=== PATIENT | female | born 1955 | race African-American/Black ===

== ENCOUNTER 2017-02-12 07:51 | Outpatient (CLI) | payer MEDICARE, MEDICAID ==
--- NOTE | 2017-02-12 08:48 | ULT ---
ULTRASOUND RETROPERITONEUM COMPLETE: (RENAL) DATE: 02-12-17 HISTORY: 61-year-old female with chronic kidney disease. FINDINGS: Right kidney is 6 x 3 x 3 cm, and has somewhat thin, and moderately echogenic parenchyma. No hydronep hrosis. Left kidney is approximately 12 x 4 x 5.5 cm, and has normal parenchymal echogenicity. Renal parenchy ma is slightly thin. There is a column of Jose. The elongation and column of Jose are suggestive of a duplicated or partially duplicated collecting system. There is no hydronephrosis. No moderate sized or large cystic or solid renal mass is identified. The urinary bladder is empty. IMPRESSION: 1. Small right kidney. 2. 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 3. No hydronephrosis. RIVER Yip POS: [facility]
== END 2017-02-12 07:52 | disposition home or self-care (01) ==
LOC: ULT 07:51
PROVIDERS: ATTEND Internal Medicine Nephrology
DX: N18.9 Chronic kidney disease, unspecified (principal); N28.1 Cyst of kidney, acquired
CPT/HCPCS: 76770

== ENCOUNTER 2017-10-15 16:59 | Emergency (ER) | payer MEDICARE, MEDICAID | END 2017-10-15 18:03 | disposition home or self-care (01) | LOC: ERS 16:59 | DX: M54.5 Low back pain (principal); E10.9 Type 1 diabetes mellitus without complications; E78.5 Hyperlipidemia, unspecified; I10 Essential (primary) hypertension; I25.10 Atherosclerotic heart disease of native coronary artery without angina pectoris; F41.9 Anxiety disorder, unspecified; Z79.82 Long term (current) use of aspirin; Z79.899 Other long term (current) drug therapy; Z79.84 Long term (current) use of oral hypoglycemic drugs; V43.62XA Car passenger injured in collision with other type car in traffic accident, initial encounter | CPT/HCPCS: 99283 ==

== ENCOUNTER 2018-01-06 11:02 | Observation (INO) | payer MEDICARE, MEDICAID ==
[2018-01-06 11:22] LABS: #Basophils 0.1 thou/uL (0.0-0.2); #Eosinphils 0.1 thou/uL (0.0-0.7); #Lymphocytes 2.5 thou/uL (1.20-3.40); #Monocytes 0.6 thou/uL (0.11-0.59); #Neutrophils 4.3 thou/uL (1.40-6.50); %Basophils 1.1 % (0.0-1.0); %Eosinophils 1.9 % (0.0-10.0); %Lymphocytes 32.4 % (21.0-51.0); %Monocytes 7.8 % (0.0-10.0); %Neutrophils 56.8 % (42.0-75.0); Hemoglobin 12.2 g/dL (12.0-16.0); Mean Corpuscular HGB CONC 32.1 g/dL (32.0-36.0); Mean Corpuscular Hemoglobin 27.7 pg (27.0-31.0); Mean Corpuscular Volume 86.3 fL (78.0-98.0); Mean Platelet Volume 8.6 fL (7.4-10.4); Platelet Count 312 thou/uL (130-400); RBC Distribution Width 13.3 % (11.5-14.5); Red Blood Cell (RBC) Count 4.42 mill/uL (4.20-5.40); White Blood Cell (WBC) Count 7.6 thou/uL (4.8-10.8)
[2018-01-06 11:43] LABS: ALT (SGPT) 11 U/L (8-55); AST (SGOT) 17 U/L (5-34); Albumin 4.2 g/dL (3.5-5.0); Alkaline Phosphatase 70 U/L (40-150); Anion Gap 12 mmol/L (10-20); BUN (Urea Nitrogen) 22 mg/dL (9.8-20.1); Bilirubin, Total 0.4 mg/dL (0.2-1.2); CK (CPK) 88 U/L (29-168); Calc. Creatinine Clearance 0 mL/min (70-130); Calcium 9.7 mg/dL (7.8-10.44); Carbon Dioxide 29 mmol/L (22-29); Chloride 100 mmol/L (98-107); Estimated GFR-MDRD 42; Globulin 4.4 g/dL (2.4-3.5); Glucose 68 mg/dL (70-105); Lipase 70 U/L (8-78); Potassium 3.5 mmol/L (3.5-5.1); Protein, Total 8.6 g/dL (6.0-8.3); Sodium 137 mmol/L (136-145)
[2018-01-06 11:47] LABS: CKMB 0.7 ng/mL (0-6.6); Troponin I Less than 0.010 ng/mL (< 0.028)
--- NOTE | 2018-01-06 12:04 | RAD ---
UPRIHGT PORTABLE CHEST ONE VIEW: History: 62-year-old female with history of shortness of breath. Comparison: 05-06-15 FINDINGS: Post underlying sternotomy. Left ICD. Old granuloma calcification in the right lower lobe. Heart size is normal. The lungs are clear. IMPRESSION: No acute intrathoracic disease. Atherosclerosis of the aorta. Post underlying sternotomy. Left ICD. O ld granulomatous disease. POS: C
[2018-01-06] MEDS ORDERED: Acetaminophen 325 MG TAB PO PRN (13:55)
[2018-01-06] MEDS ORDERED: Ondansetron PF 4 MG/2 ML Vial IVP PRN (13:55)
[2018-01-06] MEDS ORDERED: Ondansetron ODT 4 MG TAB SL PRN (13:55)
[2018-01-06 14:06] VITALS: BMI 40.4
[2018-01-06 14:50] LABS: Troponin I Less than 0.010 ng/mL (< 0.028)
[2018-01-06] MEDS ORDERED: Dextrose 50% Abboject 50 ML SYRINGE SLOW IVP PRN (17:36)
[2018-01-06] MEDS ORDERED: Dextrose 5% in Water 1,000 ML IV PRN (17:36)
[2018-01-06] MEDS ORDERED: Insulin Regular 300 UNITS/3 ML VIAL SC PRN (17:36)
[2018-01-06 18:20] LABS: Troponin I Less than 0.010 ng/mL (< 0.028)
[2018-01-06] MEDS ORDERED: Nitroglycerin 0.4 MG TAB (25 Tab Bottle) SL PRN (18:32)
--- NOTE | 2018-01-06 18:39 | HP ---
DATE OF ADMISSION: 01/06/2018 CHIEF COMPLAINT: Chest pain. HISTORY OF PRESENT ILLNESS: Ms. Prajapati is a pleasant 62-year-old female with a past medical history of type 1 diabetes, hyperlipidemia, hypertension, CAD with stent placement, CABG about 5 years ago a long with AICD placement. She had presented to the ER with some chest pain and chest pain and shortn ess of breath that started last night, she states that the chest pain is a pressure-like sensation. She should also report some nausea without vomiting during this time. She states she was supposed to follow up with Dr. Hancock tomorrow for a checkup on her AICD. She states that the pain continued on t hrough today and that is what brought her in. She states the pain radiates throughout her chest, but denies any radiation down her arm. She denies any trauma or abdominal pain, headache or dizziness. In the ER, an EKG was obtained and showed junctional rhythm with a rate of 81 with PVCs. Chest x-ra y was unremarkable. She states she took her home nitro and aspirin; however, these failed to help wi th symptoms. PAST MEDICAL HISTORY: Chronic systolic heart failure, chronic ischemic cardiomyopathy, CAD with kenya nary artery bypass grafting, hypertension, dyslipidemia, paroxysmal ventricular tachycardia, diabetes type 1. PAST PSYCHIATRIC HISTORY: Positive for anxiety and depression. PAST SURGICAL HISTORY: CABG, AICD placement, tubal ligation. SOCIAL HISTORY: She lives at home with family. She denies tobacco, alcohol, or drug use. FAMILY HISTORY: No strong family history of CAD, CVA or cancer. ALLERGIES: No known drug allergies. CURRENT HOME MEDICATIONS: Aspirin 325 mg p.o. daily, isosorbide mononitrate 30 mg p.o. b.i.d., metfo rmin 500 mg p.o. b.i.d., pravastatin 40 mg p.o. daily, citalopram 20 mg p.o. daily, hydralazine HCL 5 0 mg p.o. t.i.d., spironolactone 25 mg p.o., VESIcare 5 mg p.o. daily, nitroglycerin 0.4 mg sublingua l every 5 minutes p.r.n. chest pain, carvedilol 25 mg p.o. b.i.d., multivitamin 2 tabs p.o. daily, to rsemide 60 mg p.o. daily. REVIEW OF SYSTEMS: Constitutional: Denies weight loss or weight gain. She reports able to do daily activities. Skin: No rashes or itching. Eyes: No double vision or eye pain. ENT: Denies nosebl eeds, neck stiffness, pain, or tenderness. Cardiovascular: Does report chest pain; however, no palp itations. Respiratory: Does report mild shortness of breath; however, denies wheezing, cough. Ruiz rointestinal: Denies poor appetite, abdominal pain, heartburn, nausea, vomiting, constipation and di arrhea. Genitourinary: Denies any frequency, urgency or dysuria. Musculoskeletal: Denies any pain or swelling. Neurologic: Denies any weakness or numbness or tingling. Psychiatric: Does report h istory of depression and anxiety. PHYSICAL EXAMINATION: VITAL SIGNS: Blood pressure 138/67, pulse 59, respirations 21, temperature 98.0, O2 saturations 99% on room air. GENERAL: The patient is alert and oriented x3. Mild acute distress noted due to chest pain. HEENT: Head is normocephalic, atraumatic. Eyes, pupils are round, reactive to light. Extraocular m uscles intact. ENT: Oropharynx is within normal limits. Moist mucous membranes. No oral lesions, no pharyngeal erythema or exudates. NECK: No JVD, no thyromegaly, no carotid bruit. LUNGS: Clear to auscultation bilaterally. No wheezes, rhonchi or rales. CARDIAC: Positive S1, S2. No murmur, gallop or rub. ABDOMEN: Soft, nontender, nondistended. Bowel sounds present. No masses noted. No suprapubic tend erness. BACK: Unremarkable. No CVA tenderness. EXTREMITIES: Full range of motion noted. No edema. Peripheral pulses 2+ bilaterally. SKIN: No rashes or lesions. NEUROLOGICAL: Nonfocal deficit noted. Cranial nerves II-XII intact. Moves all extremities. PSYCHIATRIC: Normal mood and affect. SIGNIFICANT LABORATORY DATA: WBC 7.6, RBC 4.42, hemoglobin 12.2. Sodium 137, potassium 3.5, creatin ine 1.53, GFR 42, glucose 60. Troponin less than 0.010 x2. BNP 85.2. AST 17, ALT 11, lipase 70. DIAGNOSTIC IMAGING: Chest x-ray showed no acute intrathoracic disease with a left implantable cardio verter defibrillator in place. ASSESSMENT AND PLAN: 1. Chest pain, we will rule out cardiac causes with stress test and echocardiogram. We will trend t roponins. We will consult Dr. Hancock for further evaluation of her AICD. We will also obtain an AICD interrogation. Monitor EKG. Check CBC and BMP in the morning and replace electrolytes as needed. 2. Chronic systolic heart failure, continue home medications for medical management. 3. Dyslipidemia. Continue home statin therapy. 4. Coronary artery disease with history of coronary artery bypass graft, as above. Continue patient 's home medications for medical management. 5. Chronic kidney disease stage 4, monitor BMP closely, creatinine on admission was 1.53, which seem s to be her baseline. 6. Diabetes mellitus, we will start patient on sliding scale. Monitor blood sugars closely with dameon liu Accu-Cheks. We will start patient on diabetic diet. 7. Gastrointestinal prophylaxis, Protonix 40 mg p.o. daily. 8. Hypertension. Continue home medications and monitor vital signs closely with further adjustments pending the patient's progress. 9. Deep venous thrombosis prophylaxis. We will continue Lovenox daily. CODE STATUS: The patient is FULL CODE. Surrogate decision maker is her daughter. Disposition plan based on Cardiology recommendations and further workup.
[2018-01-06] MEDS: hydrALAZINE 25 MG TAB PO SCH (20:59)
[2018-01-06] MEDS ORDERED: TROSPIUM 20 MG TABLET PO SCH (21:00)
[2018-01-07 04:43] LABS: #Basophils 0.1 thou/uL (0.0-0.2); #Eosinphils 0.1 thou/uL (0.0-0.7); #Lymphocytes 2.7 thou/uL (1.20-3.40); #Monocytes 0.5 thou/uL (0.11-0.59); %Basophils 1.7 % (0.0-1.0); %Eosinophils 2.2 % (0.0-10.0); %Monocytes 7.6 % (0.0-10.0); %Neutrophils 46.5 % (42.0-75.0); Hemoglobin 11.5 g/dL (12.0-16.0); Mean Corpuscular HGB CONC 31.3 g/dL (32.0-36.0); Mean Corpuscular Hemoglobin 27.4 pg (27.0-31.0); Mean Corpuscular Volume 87.6 fL (78.0-98.0); Mean Platelet Volume 9.2 fL (7.4-10.4); Platelet Count 281 thou/uL (130-400); RBC Distribution Width 13.4 % (11.5-14.5); White Blood Cell (WBC) Count 6.4 thou/uL (4.8-10.8)
[2018-01-07 05:10] LABS: Anion Gap 12 mmol/L (10-20); BUN (Urea Nitrogen) 21 mg/dL (9.8-20.1); Calc. Creatinine Clearance 70 mL/min (70-130); Calcium 9.5 mg/dL (7.8-10.44); Carbon Dioxide 29 mmol/L (22-29); Chloride 103 mmol/L (98-107); Estimated GFR-MDRD 48; Glucose 88 mg/dL (70-105); Potassium 4.2 mmol/L (3.5-5.1); Sodium 140 mmol/L (136-145)
[2018-01-07] MEDS ORDERED: Spironolactone 25 MG TAB PO SCH (08:00)
[2018-01-07] MEDS: Carvedilol 25 MG TAB PO SCH ×3 (08:50→17:51)
--- NOTE | 2018-01-07 11:56 | CON ---
DATE OF CONSULTATION: 01/07/2018 ELECTROPHYSIOLOGY CONSULTATION REPORT REFERRING PHYSICIAN: Otilio Jenkins M.D., as well as Oscar Sewell M.D. I am seeing Ms. Reed at our [facility] telemetry floor as an electrophysiology sap pp consultant . Her problems are: 1. RV lead warning with impending RV lead fracture as per ICD interrogation. A. Impedance jumped to 1500 ohms and short interval suggestive of impending fracture. Current ly, tachyarrhythmia detection turned off. B. Otherwise, adequately functioning Medtronic Secura DR dual chamber device with an implant, dates 10/2012. 2. Atypical chest pains. A. Stress test pending. 3. Chronic systolic congestive heart failure with ischemic cardiomyopathy. A. Prior history of coronary artery bypass grafting surgery and stent procedures in the past. B. Last echo from 11/19/2012 with LVEF 35%-40%, [id number] MR. 4. Risk factors include diabetes, dyslipidemia, hypertension. ALLERGIES: None noted. MEDICATIONS AT HOME: Include aspirin, isosorbide, metformin, pravastatin, citalopram, hydralazine, s pironolactone, VESIcare, nitroglycerin, carvedilol, multivitamin, torsemide. SUBJECTIVE: Ms. Reed is doing fair. She has been complaining of chest discomforts with shortness of breath, started last night, pressure-like sensation. She reports some nausea, but no vomiting. She has no stroke-like symptoms, no neurological deficits, no fever, chills, or cough. The chest padmini n radiates to the chest, but no radiation to the arm is noted. She denies palpitations or ICD shocks . No bleeding issues noted. Rest of 12-point system, otherwise, unremarkable. OBJECTIVE DATA: VITAL SIGNS: Blood pressure is 137/65, heart rate is 60, respirations 20, temperature 98.4 degrees F ahrenheit. GENERAL: She is alert and oriented woman in no apparent distress. NECK: Supple. Jugular veins not distended. CHEST: Coarse without crackles. HEART: Sounds are regular to rate and rhythm. No murmur, rub, or gallop. ABDOMEN: Benign. Bowel sounds positive. EXTREMITIES: Lower extremities without edema, clubbing, or cyanosis. NEUROLOGIC: Patient nonfocal. MUSCULOSKELETAL EXAM: No joint swelling or deformity. SKIN: Without rash. DATABASE: Left precordial ICD insertion site is well healed. EKG with sinus rhythm with ST-T changes. LABORATORY DATA: White cell count 6.4, hemoglobin 11.5, platelet count is 281. Sodium 140, potassiu m 4.2, BUN is 21, creatinine 1.35. The ICD interrogation reveals an adequately functioning Medtronic Secura device, battery longevity st ill adequate not at ALEX yet. Lead parameters are adequate except for the RV lead has impedance warni ng jumping to 1500 ohms. A physiologic interval was observed. ASSESSMENT AND PLAN: Ms. Reed is a 62-year-old woman with a history of congestive heart failure, nonischemic cardiomyopathy. She has a dual chamber ICD in place from 2012. Now, the ICD seems to be exhibiting lead warning. She is currently undergoing a stress test for atypical chest pains and his tory of coronary artery disease. We discussed future treatment options for her. Currently, the ICD is turned off and will be likely n onfunctional in the near future with complete fracture. Hence, ICD revision is likely beneficial. L ongterm extraction of lead and replacement of a new lead would be the best solution. I did discuss t he option of adding pace/sense lead as well. Eventually, we agreed to consider transfer to [place] for the lead revision. We will make arrangements.
[2018-01-07] MEDS: hydrALAZINE 25 MG TAB PO SCH ×3 (12:07→20:47)
[2018-01-07] MEDS: Torsemide 20 MG TAB PO SCH (12:08)
[2018-01-07] MEDS: TROSPIUM 20 MG TABLET PO SCH ×2 (12:09→21:55)
[2018-01-07] MEDS: Citalopram 20 MG TAB PO SCH (12:09)
[2018-01-07] MEDS: Aspirin 325 mg Enteric Coated Tablet PO SCH (12:09)
[2018-01-07] MEDS: Enoxaparin Sodium 40 MG/0.4 ML SYRINGE SC SCH (12:10)
[2018-01-07] MEDS: Atorvastatin Calcium 10 MG TAB PO SCH (12:10)
--- NOTE | 2018-01-07 13:11 | NM ---
CARDIAC SPECT: HISTORY: A 62-year-old female with chest pain, coronary artery disease status post CABG, cardiomyopathy, CHF, AICD placement, hypertension, diabetes, and dyslipidemia. TECHNIQUE: A stress-only myocardial perfusion scan was performed following the intravenous administration of 32 mCi Technetium 99m sestamibi injected intravenously. Pharmacologic stress with adenosine is monitore d and interpreted by Dr. Galindo Pizarro. FINDINGS: Homogeneous tracer distribution is seen in the myocardial segments on the post stress images. GATED SPECT LVEF: 65%. WALL MOTION EXAM: Normal. IMPRESSION: Normal post-stress myocardial perfusion scan. POS: [facility]
[2018-01-07] MEDS ORDERED: ADENOSINE 60 MG/20 ML VIAL ONE (16:31)
--- NOTE | 2018-01-07 17:00 | PDOC.PN ---
- Subjective Encounter Start Date: 01/07/18 Encounter Start Time: 11:00 Patient lying in bed, she reports some chest discomfort with some shortness of breath but improving. She underwent stress testing this morning which was unremarkable. It was found that during interrogation of AICD that she has a broken lead. Dr Hancock recommending possible lead revision with possible transfer to [place]. - Objective Resuscitation Status: Resuscitation Status FULL:Full Resuscitation MAR Reviewed: Yes Vital Signs & Weight: Vital Signs (12 hours) Temp Pulse Resp BP Pulse Ox 01/07/18 15:02 97.6 F 69 20 148/69 H 99 01/07/18 14:56 61 01/07/18 11:12 97.8 F 61 20 137/64 100 01/07/18 07:14 98.4 F 60 20 137/65 99 01/07/18 05:15 98.0 F 59 L 17 133/63 97 Weight Weight 223 lb 1.725 oz I&O: 01/06/18 01/07/18 01/08/18 06:59 06:59 06:59 Intake Total 740 Output Total 950 Balance -210 Result Diagrams: 01/07/18 03:18 01/07/18 03:18 Additional Labs: Accuchecks 01/07/18 01/07/18 01/06/18 16:45 11:16 22:16 POC Glucose 125 H 188 H 97 01/06/18 16:47 POC Glucose 209 H Radiology Reviewed by me: Yes EKG Reviewed by me: Yes Phys Exam - Physical Examination Mild distress due to pain HEENT: PERRLA, moist MMs, sclera anicteric, oral pharynx no lesions Neck: no nodes, no JVD, supple Respiratory: no wheezing, no rales, no rhonchi Decreased aeration bilaterally Cardiovascular: RRR, no significant murmur, no rub Gastrointestinal: soft, non-tender, no distention, positive bowel sounds Musculoskeletal: no edema, pulses present Neurological: non-focal, normal sensation, moves all 4 limbs Lymphatic: no nodes Psychiatric: normal affect, A&O x 3 Skin: no rash, normal turgor, cap refill <2 seconds Dx/Plan (1) AICD lead malfunction Code(s): T82.110A - BREAKDOWN (MECHANICAL) OF CARDIAC ELECTRODE, INIT ENCNTR Status: Acute (2) Nonischemic cardiomyopathy Code(s): I42.8 - OTHER CARDIOMYOPATHIES Status: Acute (3) CAD (coronary artery disease) Code(s): I25.10 - ATHSCL HEART DISEASE OF [place] CORONARY ARTERY W/O ANG PCTRS Status: Acute (4) Chest pain Code(s): R07.9 - CHEST PAIN, UNSPECIFIED Status: Acute - Plan cont current plan of care, DVT proph w/SCDs * Continue medical management with home medications * Dr Hancock following and recommending possible transfer to [place] * Stress test unremarkable * Await further recommendations and arrangements for transfer.
[2018-01-08 09:11] LABS: #Basophils 0.1 thou/uL (0.0-0.2); #Eosinphils 0.2 thou/uL (0.0-0.7); #Lymphocytes 2.6 thou/uL (1.20-3.40); #Monocytes 0.5 thou/uL (0.11-0.59); #Neutrophils 3.3 thou/uL (1.40-6.50); %Basophils 1.4 % (0.0-1.0); %Eosinophils 2.5 % (0.0-10.0); %Lymphocytes 38.9 % (21.0-51.0); %Monocytes 6.8 % (0.0-10.0); %Neutrophils 50.4 % (42.0-75.0); Hemoglobin 11.9 g/dL (12.0-16.0); Mean Corpuscular HGB CONC 31.5 g/dL (32.0-36.0); Mean Corpuscular Hemoglobin 26.9 pg (27.0-31.0); Mean Corpuscular Volume 85.3 fL (78.0-98.0); Mean Platelet Volume 8.7 fL (7.4-10.4); Platelet Count 328 thou/uL (130-400); RBC Distribution Width 13.3 % (11.5-14.5); Red Blood Cell (RBC) Count 4.42 mill/uL (4.20-5.40); White Blood Cell (WBC) Count 6.6 thou/uL (4.8-10.8)
[2018-01-08] MEDS: Carvedilol 25 MG TAB PO SCH ×2 (09:11→16:26)
[2018-01-08] MEDS: Aspirin 325 mg Enteric Coated Tablet PO SCH (09:11)
[2018-01-08] MEDS: Atorvastatin Calcium 10 MG TAB PO SCH (09:11)
[2018-01-08] MEDS: TROSPIUM 20 MG TABLET PO SCH (09:12)
[2018-01-08] MEDS: Citalopram 20 MG TAB PO SCH (09:12)
[2018-01-08] MEDS: hydrALAZINE 25 MG TAB PO SCH ×2 (09:12→14:32)
[2018-01-08] MEDS: Torsemide 20 MG TAB PO SCH (09:12)
[2018-01-08] MEDS: Enoxaparin Sodium 40 MG/0.4 ML SYRINGE SC SCH (09:15)
[2018-01-08 09:32] LABS: Anion Gap 13 mmol/L (10-20); BUN (Urea Nitrogen) 20 mg/dL (9.8-20.1); Calc. Creatinine Clearance 66 mL/min (70-130); Calcium 9.6 mg/dL (7.8-10.44); Carbon Dioxide 29 mmol/L (22-29); Chloride 100 mmol/L (98-107); Estimated GFR-MDRD 43; Glucose 106 mg/dL (70-105); Potassium 3.7 mmol/L (3.5-5.1); Sodium 138 mmol/L (136-145)
--- NOTE | 2018-01-08 10:45 | PDOC.CTH ---
Cardiology Progress Note - Subjective EP progress note: Patient seen and evaluated. No new cardiac concerns or complaints today. Denies heart racing, palpitations, chest pain/pressure, dizziness, or passing out. No stroke like symptoms. - Objective Vital Signs Temp Pulse Resp BP Pulse Ox 01/08/18 09:12 61 01/08/18 07:20 97.9 F 61 16 114/60 96 01/08/18 04:05 97.7 F 69 16 141/68 H 97 01/07/18 23:09 97.4 F L 62 14 119/57 L 97 Weight 231 lb 0.711 oz 01/07/18 01/08/18 01/09/18 06:59 06:59 06:59 Intake Total 740 550 240 Output Total 950 Balance -210 550 240 - Physical Examination General/Neuro: alert & oriented x3, NAD Neck: carotid US brisk, no JVD present Lungs: CTA, unlabored respirations Heart: RRR Abdomen: NT/ND, soft - Telemetry Telemetry Rhythm: AP, VS- SR - Labs Result Diagrams: 01/08/18 08:50 01/08/18 08:50 Troponin/CKMB CK-MB (CK-2) 0.7 ng/mL (0-6.6) 01/06/18 11:14 Troponin I Less than 0.010 ng/mL (< 0.028) 01/06/18 17:47 - Assessment/Plan 1. RV lead fracture 2. Atypical chest pain -Stress test normal 3. Chronic systolic heart failure, Ischemic cardiomyopathy 4. CAD, prior CABG and PCI pending transfer to [facility] in [place] to undergo lead extraction and replacement with Dr Umana. Accepting MD will be with [facility] (hospitalist group). Awaiting bed availability at this time.
[2018-01-08 11:59] VITALS: TEMP 98
[2018-01-08 16:26] VITALS: BP 136/66
== END 2018-01-08 18:48 | disposition short-term general hospital (02) ==
LOC: ERS 11:02 → 2SW 12:52
PROVIDERS: ADMIT Internal Medicine Infectious Disease; ATTEND Internal Medicine Infectious Disease
DX: R07.89 Other chest pain (principal); T82.110A Breakdown (mechanical) of cardiac electrode, initial encounter; I47.2 Ventricular tachycardia; I25.5 Ischemic cardiomyopathy; I12.9 Hypertensive chronic kidney disease with stage 1 through stage 4 chronic kidney disease, or unspecified chronic kidney disease; E10.22 Type 1 diabetes mellitus with diabetic chronic kidney disease; N18.4 Chronic kidney disease, stage 4 (severe); I50.22 Chronic systolic (congestive) heart failure; E78.5 Hyperlipidemia, unspecified; I25.10 Atherosclerotic heart disease of native coronary artery without angina pectoris; F41.9 Anxiety disorder, unspecified; F32.9 Major depressive disorder, single episode, unspecified; Z79.82 Long term (current) use of aspirin; Z79.84 Long term (current) use of oral hypoglycemic drugs; Z79.899 Other long term (current) drug therapy; Z95.5 Presence of coronary angioplasty implant and graft; Z95.1 Presence of aortocoronary bypass graft; Z95.810 Presence of automatic (implantable) cardiac defibrillator
CPT/HCPCS: 71045; 78452; 80048 ×2; 80053; 82550; 82553; 82962 ×3; 83690; 83880; 84484 ×2; 85025 ×3; 93005; 93017; 93306; 96372; 99285; A9500; G0378 ×2; 36415; 36416; J0153; J1650

== ENCOUNTER 2018-08-10 14:11 | Emergency (ER) | payer MEDICARE, MEDICAID ==
[2018-08-10 14:46] LABS: Bilirubin Negative (Negative); Blood, Urine Negative (Negative); Clarity CLEAR (Clear); Glucose, Urine (Dipstick) Negative (Negative); Leukocyte Trace (Negative); Nitrite Negative (Negative); Protein, Urine (Dipstick) Negative (Neg-Trace); Urobilinogen 0.2 mg/dL (0.2-1.0); pH, Urine 5.5 (5.0-9.0)
[2018-08-10 14:48] LABS: Bacteria/HPF None Seen HPF (None Seen); Hyaline Casts/LPF 0-3 HYALINE CAST LPF (0-3 Hyaline); Pathc Cast-AUWi Flag 0.27 (0-2.49); RBC/HPF 0-3 HPF (0-3); Squamous Epithelial None Seen HPF (0-3); WBC/HPF 0-3 HPF (0-3)
[2018-08-10 15:35] LABS: #Basophils 0.1 thou/uL (0.0-0.2); #Eosinphils 0.1 thou/uL (0.0-0.7); #Lymphocytes 1.8 thou/uL (1.20-3.40); #Monocytes 0.4 thou/uL (0.11-0.59); #Neutrophils 3.9 thou/uL (1.40-6.50); %Basophils 1.3 % (0.0-1.0); %Eosinophils 1.9 % (0.0-10.0); %Lymphocytes 28.2 % (21.0-51.0); %Monocytes 6.6 % (0.0-10.0); Hemoglobin 11.5 g/dL (12.0-16.0); Mean Corpuscular HGB CONC 32.2 g/dL (32.0-36.0); Mean Corpuscular Volume 87.2 fL (78.0-98.0); Mean Platelet Volume 8.4 fL (7.4-10.4); Platelet Count 274 thou/uL (130-400); RBC Distribution Width 13.5 % (11.5-14.5); Red Blood Cell (RBC) Count 4.09 mill/uL (4.20-5.40); White Blood Cell (WBC) Count 6.2 thou/uL (4.8-10.8)
[2018-08-10 15:57] LABS: ALT (SGPT) 11 U/L (8-55); AST (SGOT) 15 U/L (5-34); Albumin 4.2 g/dL (3.5-5.0); Alkaline Phosphatase 62 U/L (40-150); Anion Gap 12 mmol/L (10-20); BUN (Urea Nitrogen) 23 mg/dL (9.8-20.1); Bilirubin, Total 0.4 mg/dL (0.2-1.2); Calcium 9.9 mg/dL (7.8-10.44); Carbon Dioxide 30 mmol/L (22-29); Chloride 103 mmol/L (98-107); Globulin 3.9 g/dL (2.4-3.5); Glucose 93 mg/dL (70-105); Lipase 58 U/L (8-78); Protein, Total 8.1 g/dL (6.0-8.3); Sodium 141 mmol/L (136-145)
[2018-08-10 16:12] LABS: Calc. Creatinine Clearance 0 mL/min (70-130); Estimated GFR-MDRD 45
--- NOTE | 2018-08-10 18:48 | CT ---
CT OF ABDOMEN AND PELVIS PERFORMED WITH CONTRAST ENHANCEMENT: 08/10/18 HISTORY: Abdominal pain, left sided x 3 weeks. Surgical history of a tubal ligation. COMPARISON: A 06/16/[address] of the chest and abdomen. Lung bases are clear of infiltrates. Calcified granuloma is seen in the right middle lobe. The liver, spleen, pancreas, and gallbladder regions appear unremarkable. Right and left adrenal glands are normal. The right kidney is atrophic with compensatory hypertrophy to the left kidney. This has developed since the 2009 exam. There is no renal or ureteral calculi id entified. The left collecting system appears to be partially duplicated. There is no significant camilla aortic or mesenteric lymphadenopathy. CT OF PELVIS PERFORMED WITH CONTRAST ENHANCEMENT: The appendix appears unremarkable. There is no evidence of any pelvic lymphadenopathy or mass. No inf lammatory process. Some moderate atherosclerotic change of the iliac vessels are noted. IMPRESSION: 1. Atrophic right kidney. 2. No acute abnormalities of the abdomen or pelvis. POS: [facility]
== END 2018-08-10 19:30 | disposition home or self-care (01) ==
LOC: ERS 14:11
DX: R10.9 Unspecified abdominal pain (principal); E11.9 Type 2 diabetes mellitus without complications; E78.5 Hyperlipidemia, unspecified; I10 Essential (primary) hypertension; I25.10 Atherosclerotic heart disease of native coronary artery without angina pectoris; F41.9 Anxiety disorder, unspecified; Z87.891 Personal history of nicotine dependence; Z79.899 Other long term (current) drug therapy; Z79.82 Long term (current) use of aspirin; Z79.84 Long term (current) use of oral hypoglycemic drugs
CPT/HCPCS: 36415; 74177; 80053; 81003; 81015; 83690; 85025; J0500

== ENCOUNTER 2018-12-25 10:39 | Outpatient (CLI) | payer MEDICARE, MEDICAID ==
--- NOTE | 2018-12-25 13:44 | MMO ---
Bilateral MAMMO Bilat Screen [id number]. CLINICAL HISTORY: Patient is 63 years old and is seen for screening. The patient has no family history of breast cancer. The patient has no personal history of cancer. VIEWS: The views performed were: bilateral craniocaudal with tomosynthesis; bilateral mediolateral oblique; and bilateral mediolateral oblique with tomosynthesis. FILMS COMPARED: The present examination has been compared to a prior imaging study performed at [facility] on 01/10/2017. This study has been interpreted with the assistance of computer-aided detection. MAMMOGRAM FINDINGS: There are no suspicious masses, suspicious calcifications, or new areas of architectural distortion. IMPRESSION: THERE IS NO MAMMOGRAPHIC EVIDENCE OF MALIGNANCY. A ROUTINE FOLLOW-UP MAMMOGRAM IN 1 YEAR IS RECOMMENDED. THE RESULTS OF THIS EXAM WERE SENT TO THE PATIENT. ACR BI-RADS Category 1 - Negative MAMMOGRAPHY NOTE: 1. A negative mammogram report should not delay a biopsy if a dominant of clinically suspicious mass is present. 2. Approximately 10% to 15% of breast cancers are not detected by mammography. 3. Adenosis and dense breasts may obscure an underlying neoplasm. Reported by: PEGGY SORENSEN MD Electonically Signed: [id number]
== END 2018-12-25 10:40 | disposition home or self-care (01) ==
LOC: BICMAMMO 10:39
PROVIDERS: ATTEND Family Medicine
DX: Z12.31 Encounter for screening mammogram for malignant neoplasm of breast (principal)
CPT/HCPCS: 77063; 77067

== ENCOUNTER 2020-11-25 06:24 | Emergency (ER) | payer MEDICARE, MEDICAID ==
[2020-11-25] MEDS ORDERED: Ketorolac Tromethamine 30 MG/ML VIAL ONE (06:53)
[2020-11-25] MEDS ORDERED: Lorazepam 1 MG TAB ONE (07:24)
== END 2020-11-25 08:21 | disposition home or self-care (01) ==
LOC: ERS 06:24
DX: M10.9 Gout, unspecified (principal); I13.10 Hypertensive heart and chronic kidney disease without heart failure, with stage 1 through stage 4 chronic kidney disease, or unspecified chronic kidney disease; E11.22 Type 2 diabetes mellitus with diabetic chronic kidney disease; N18.9 Chronic kidney disease, unspecified; I25.10 Atherosclerotic heart disease of native coronary artery without angina pectoris; E78.5 Hyperlipidemia, unspecified; Z86.718 Personal history of other venous thrombosis and embolism; Z87.891 Personal history of nicotine dependence; Z95.0 Presence of cardiac pacemaker; Z79.82 Long term (current) use of aspirin; Z79.84 Long term (current) use of oral hypoglycemic drugs; Z79.899 Other long term (current) drug therapy
CPT/HCPCS: 96372; J1885

== ENCOUNTER 2022-01-31 09:10 | Emergency (ER) | payer MEDICARE, MEDICAID ==
[2022-01-31 10:01] LABS: ALT (SGPT) 16 U/L (8-55); AST (SGOT) 15 U/L (5-34); Alkaline Phosphatase 76 U/L (40-110); Anion Gap 13 mmol/L (10-20); BUN (Urea Nitrogen) 13 mg/dL (9.8-20.1); Bilirubin, Total 0.4 mg/dL (0.2-1.2); Calc. Creatinine Clearance 0 mL/min (70-130); Carbon Dioxide 24 mmol/L (23-31); Chloride 108 mmol/L (98-107); Estimated GFR 53; Globulin 3.7 g/dL (2.4-3.5); Glucose 97 mg/dL (80-115); Potassium 4.5 mmol/L (3.5-5.1); Protein, Total 7.7 g/dL (5.8-8.1); Sodium 140 mmol/L (136-145)
[2022-01-31 10:02] LABS: #Basophils 0.1 thou/uL (0.0-0.2); #Eosinphils 0.3 thou/uL (0.0-0.7); #Lymphocytes 2.1 thou/uL (1.20-3.40); #Monocytes 0.5 thou/uL (0.11-0.59); #Neutrophils 3.8 thou/uL (1.40-6.50); %Eosinophils 3.7 % (0.0-10.0); %Lymphocytes 31.1 % (21.0-51.0); %Monocytes 8.1 % (0.0-10.0); %Neutrophils 56.1 % (42.0-75.0); Hemoglobin 11.4 g/dL (12.0-16.0); Mean Corpuscular Hemoglobin 28.5 pg (27.0-31.0); Mean Corpuscular Volume 86.2 fl (78.0-98.0); Mean Platelet Volume 8.8 fL (7.4-10.4); Platelet Count 286 10x3/uL (130-400); RBC Distribution Width 13.6 % (11.5-14.5); Red Blood Cell (RBC) Count 3.99 mill/uL (4.20-5.40); White Blood Cell (WBC) Count 6.7 10x3/uL (4.8-10.8)
== END 2022-01-31 12:01 | disposition home or self-care (01) ==
LOC: ERS 09:10
DX: R06.02 Shortness of breath (principal); I10 Essential (primary) hypertension; E11.9 Type 2 diabetes mellitus without complications; E78.5 Hyperlipidemia, unspecified; Z87.891 Personal history of nicotine dependence; Z79.899 Other long term (current) drug therapy
CPT/HCPCS: 36415; 71045; 80053; 83880; 84484; 85025; 93005; 94760

== ENCOUNTER 2022-12-20 09:46 | Outpatient (CLI) | payer OTHER, MEDICAID | END 2022-12-20 09:47 | disposition home or self-care (01) | LOC: BICMAMMO 09:46 | PROVIDERS: ATTEND Family Medicine | DX: Z12.31 Encounter for screening mammogram for malignant neoplasm of breast (principal) | CPT/HCPCS: 77063; 77067 ==

== ENCOUNTER 2024-03-20 09:04 | Emergency (ER) | payer OTHER, MEDICAID ==
[2024-03-20] MEDS ORDERED: Ketorolac Tromethamine 30 MG (1 mL) VIAL ONE (09:27)
[2024-03-20 10:34] LABS: Bacteria/HPF 4+ HPF (None Seen); Bilirubin Negative (Negative); Blood, Urine Negative (Negative); CAUTI Indications for Culture Pelvic or flank pain; Clarity Clear (Clear); Glucose, Urine (Dipstick) Normal (Negative); Ketone, Urine Negative (Negative); Leukocyte 25 Leu/uL (Negative); Nitrite Negative (Negative); Protein, Urine (Dipstick) Negative (Neg-Trace); RBC/HPF 0-3 HPF (0-3); Specific Gravity, Urine 1.018 (1.002-1.036); Squamous Epithelial 0-3 HPF (0-3); Urobilinogen Normal mg/dL (Less than 2); pH, Urine 6.5 (5.0-9.0)
[2024-03-20 10:35] LABS: Urine Culture Reflex No No
[2024-03-20 11:06] LABS: #Basophils 0.05 10x3/uL (0.0-0.2); %Basophils 0.8 % (0.0-1.0); %Eosinophils 2.6 % (0.0-10.0); %Lymphocytes 32.9 % (21.0-51.0); %Monocytes 7.3 % (0.0-10.0); %Neutrophils 56.1 % (42.0-75.0); Hematocrit 37.4 % (36.0-47.0); Mean Corpuscular HGB CONC 32.1 g/dL (32.0-36.0); Mean Corpuscular Hemoglobin 27.5 pg (27.0-31.0); Mean Corpuscular Volume 85.8 fL (78.0-98.0); Mean Platelet Volume 10.8 fL (7.4-10.4); Platelet Count 292 10x3/uL (130-400); RBC Distribution Width 14.4 % (11.5-14.5); Red Blood Cell (RBC) Count 4.36 mill/uL (4.20-5.40)
[2024-03-20 11:20] LABS: ALT (SGPT) Less than 7 U/L (Less than 34); AST (SGOT) 21 U/L (11-34); Albumin 3.7 g/dL (3.1-4.5); Alkaline Phosphatase 55 U/L (40-110); Anion Gap 14 mmol/L (10-20); BUN (Urea Nitrogen) 17 mg/dL (9.8-20.1); Bilirubin, Total 0.4 mg/dL (0.3-1.2); Calc. Creatinine Clearance 0 mL/min (70-130); Calcium 9.6 mg/dL (7.8-10.44); Carbon Dioxide 23 mmol/L (23-31); Chloride 105 mmol/L (98-107); Estimated GFR 50; Globulin 4.7 g/dL (2.4-3.5); Glucose 104 mg/dL (80-115); Lipase 28 U/L (8-78); Potassium 4.1 mmol/L (3.5-5.1); Protein, Total 8.3 g/dL (5.8-8.1); Sodium 138 mmol/L (136-145)
== END 2024-03-20 12:43 | disposition home or self-care (01) ==
LOC: ERS 09:04
DX: K59.00 Constipation, unspecified (principal); F17.210 Nicotine dependence, cigarettes, uncomplicated
CPT/HCPCS: 74176; 80053; 81001; 83690; 85025; J1885; 36415; 96372

== ENCOUNTER 2024-12-24 10:35 | Outpatient (CLI) | payer OTHER | END 2024-12-24 10:36 | disposition home or self-care (01) | LOC: BICMAMMO 10:35 | PROVIDERS: ATTEND Nurse Practitioner Family | DX: Z12.31 Encounter for screening mammogram for malignant neoplasm of breast (principal) | CPT/HCPCS: 77063; 77067 ==